=== PATIENT | female | born 1990 | race Caucasian/White ===

== ENCOUNTER 2018-02-12 11:27 | Observation (INO) | payer OTHER ==
[~2018-02-12] VITALS: Ht 164 cm; Wt 79.8 kg
[2018-02-12 12:32] VITALS: BP 113/63
== END 2018-02-12 13:35 | disposition home or self-care (01) ==
LOC: 4S 11:27
PROVIDERS: ADMIT Obstetrics & Gynecology; ATTEND Obstetrics & Gynecology
DX: O36.5930 Maternal care for other known or suspected poor fetal growth, third trimester, not applicable or unspecified (principal); Z3A.38 38 weeks gestation of pregnancy
CPT/HCPCS: 59025; G0378

== ENCOUNTER 2018-02-16 15:28 | Observation (INO) | payer OTHER ==
[~2018-02-16] VITALS: Ht 164 cm; Wt 78.5 kg
[2018-02-16 15:56] VITALS: BP 103/62
[2018-02-16] MEDS ORDERED: PREN1TAB80 PO (15:59)
== END 2018-02-16 17:25 | disposition home or self-care (01) ==
LOC: 4S 15:28
PROVIDERS: ADMIT Obstetrics & Gynecology; ATTEND Obstetrics & Gynecology
DX: Z34.03 Encounter for supervision of normal first pregnancy, third trimester (principal); Z3A.38 38 weeks gestation of pregnancy
CPT/HCPCS: 59025; G0378

== ENCOUNTER 2018-02-18 09:05 | Inpatient (IN) | payer OTHER ==
[~2018-02-18] VITALS: Ht 164 cm; Wt 78.5 kg
[~2018-02-18 09:05] MED LIST: PREN1TAB80 PO
[2018-02-18] MEDS ORDERED: RINGERS SOLUTION,LACTATED 1,000 ML IV ONE (09:10)
[2018-02-18] MEDS ORDERED: CITRIC ACID/SODIUM CITRATE 30 ML SOLUTION UDCUP PO ONE (09:15)
[2018-02-18] MEDS ORDERED: METOCLOPRAMIDE HCL 5 MG/ML 2 ML VIAL IVP ONE ×2 (09:15→12:00)
[2018-02-18 09:32] VITALS: BP 103/73
[2018-02-18 10:31] LABS: BASOPHILS % (AUTO) 0.3 % (0.0-2.0); EOSINOPHILS % (AUTO) 0.4 % (1.0-6.0); HEMATOCRIT 37.7 % (36-46); HEMOGLOBIN 13.2 g/dL (12.0-16.0); LYMPHOCYTES # (AUTO) 1.3 K/uL (1.0-4.8); LYMPHOCYTES % (AUTO) 12.8 % (22.0-44.0); MEAN CORPUSCULAR HEMOGLOBIN 33.1 pg (26.0-34.0); MEAN CORPUSCULAR HGB CONC 34.9 G/dL (31.0-37.0); MEAN CORPUSCULAR VOLUME 95 fL (80-100); MONOCYTES # (AUTO) 0.7 K/uL (0.1-1.0); MONOCYTES % (AUTO) 6.8 % (2.0-9.0); NEUTROPHILS # (AUTO) 7.9 K/uL (1.8-7.7); NEUTROPHILS % (AUTO) 79.7 % (40.0-70.0); PLATELET COUNT (AUTO)-OB 159 K/uL (150-450); RED BLOOD CELL COUNT(AUTO) 3.98 MIL/uL (4.00-5.20); RED CELL DISTRIBUTION WIDTH 12.8 % (11.5-14.5)
[2018-02-18] MEDS ORDERED: MIDAZOLAM HCL 2 MG/2 ML VIAL ONE (10:49)
[2018-02-18] MEDS ORDERED: FentaNYL CITRATE-PF 100 MCG/2 ML VIAL ONE (10:50)
[2018-02-18] MEDS ORDERED: MORPHINE SULFATE/PF 1 MG/ML 10 ML AMP ONE (10:50)
[2018-02-18] MEDS ORDERED: NALOXONE HCL 0.4 MG/ML VIAL IVP PRN (11:30)
[2018-02-18] MEDS ORDERED: MEPERIDINE HCL/PF 25 MG/0.5 ML AMP IVP PRN (11:30)
[2018-02-18] MEDS ORDERED: ONDANSETRON HCL 4 MG/2 ML VIAL IVP PRN (11:30)
[2018-02-18] MEDS ORDERED: DiphenhydrAMINE HCL 50 MG/ML VIAL IVP PRN (11:30)
[2018-02-18] MEDS ORDERED: HYDROmorphone 2 MG/ML SYRINGE IVP PRN (11:30)
[2018-02-18] MEDS ORDERED: FentaNYL CITRATE-PF 100 MCG/2 ML VIAL IVP PRN ×2 (11:30)
[2018-02-18] MEDS ORDERED: OXYTOCIN 10 UNITS/ML VIAL IM ONE (12:00)
[2018-02-18] MEDS ORDERED: LANOLIN 7 GM OINTMENT TP PRN (12:00)
[2018-02-18] MEDS ORDERED: DEXAMETHASONE SOD PHOS 4 MG/ML VIAL IVP ONE (12:00)
[2018-02-18] MEDS ORDERED: KETOROLAC TROMETHAMINE 60 MG/2 ML VIAL IM ONE (12:00)
[2018-02-18] MEDS ORDERED: EPHEDrine SULFATE 50 MG/ML VIAL IM ONE (12:00)
[2018-02-18] MEDS ORDERED: LIDOCAINE HCL/PF 2% 5 ML VIAL INJ ONE (12:00)
[2018-02-18] MEDS ORDERED: ONDANSETRON HCL 4 MG/2 ML VIAL IVP ONE (12:00)
[2018-02-18] MEDS ORDERED: ACETAMINOPHEN/CODEINE 300-30 MG TABLET PO PRN (12:00)
[2018-02-18] MEDS: DEXTROSE 5%-0.45% SODIUM CHL 1,000 ML IV SCH ×3 (13:44→21:42)
[2018-02-18] MEDS: KETOROLAC TROMETHAMINE 30 MG/ML VIAL IVP SCH ×2 (17:22→23:34)
[2018-02-18] MEDS ORDERED: OXYGEN THERAPY IH SCH ×2 (20:00)
[2018-02-19] MEDS: DEXTROSE 5%-0.45% SODIUM CHL 1,000 ML IV SCH (01:08)
[2018-02-19] MEDS: KETOROLAC TROMETHAMINE 30 MG/ML VIAL IVP SCH (04:57)
[2018-02-19] MEDS: MAGNESIUM HYDROXIDE SUSPENSION 30 ML UDCUP PO SCH ×2 (08:59→21:00)
[2018-02-19] MEDS: IBUPROFEN 800 MG TABLET PO SCH ×3 (11:28→23:39)
[2018-02-19] MEDS: ACETAMINOPHEN/CODEINE 300-30 MG TABLET PO PRN (15:35)
[2018-02-20] MEDS: IBUPROFEN 800 MG TABLET PO SCH ×3 (05:31→17:01)
[2018-02-20] MEDS: MAGNESIUM HYDROXIDE SUSPENSION 30 ML UDCUP PO SCH (09:00)
[2018-02-20] MEDS: ACETAMINOPHEN/CODEINE 300-30 MG TABLET PO PRN (21:18)
[2018-02-21] MEDS: IBUPROFEN 800 MG TABLET PO SCH ×2 (06:23→12:29)
[2018-02-21] MEDS ORDERED: SENNA/DOCUSATE SODIUM 187-50 MG TABLET PO ONE (09:00)
[2018-02-21] MEDS ORDERED: IBUP-2071 PO (09:40)
[2018-02-21] MEDS ORDERED: DSS100 PO (09:41)
[2018-02-21] MEDS ORDERED: ACET1TAB12 PO (09:42)
== END 2018-02-21 12:40 | disposition home or self-care (01) | DRG 765 ==
LOC: 4S 09:05 → OBSVTOIN 09:05 → 4S 14:00
PROVIDERS: ADMIT Obstetrics & Gynecology; ATTEND Obstetrics & Gynecology
PROC: 10D00Z1 Extraction of Products of Conception, Low, Open Approach (ICD-10-PCS; principal; 2018-02-18)
DX: O32.1XX0 Maternal care for breech presentation, not applicable or unspecified (principal); O41.03X0 Oligohydramnios, third trimester, not applicable or unspecified; Z3A.39 39 weeks gestation of pregnancy; Z37.0 Single live birth
CPT/HCPCS: 86850; 86900; 86901; 87081; J1100; J1885; J2250; J2405; J2590; J2765; J3010; J3490; J7120